=== PATIENT | male | born 1980 | race Caucasian/White ===

== ENCOUNTER 2016-10-18 20:56 | Emergency (ER) | payer SELFPAY ==
[~2016-10-18] VITALS: Ht 195.6 cm; Wt 108.9 kg
[~2016-10-18 20:56] MED LIST: AMOXICILLIN 50500 MG PO; AMOXIL500 MG PO; CEFZIL250 MG PO; CLARITIN10 MG PO; DARVOCET-N 1001 EACH PO; IBUPROFEN200 MG PO; KEFLEX 500MG.500 MG PO; LORTAB 5/500 501 TAB PO; MOTRIN800 MG PO; NAPROSYN 500MG500 MG PO; NOMEDS; PENICILLIN VK500 M1 PO; SULFAMETHOXAZOL1 TA6 PO; TORADOL10 M1 PO
--- OUTSIDE RECORDS SUMMARY | 2016-10-18 21:34 | External Medical Summary Rpt ---
Author Author , Organization [employer] Address Unknown Phone Unavailable Purpose Continuity of Care Document - through 2016
--- OUTSIDE RECORDS SUMMARY | 2016-10-18 21:34 | External Medical Summary Rpt ---
Author Author , Organization [employer] Address Unknown Phone Unavailable Care Team Providers Care Director Of Automation Name Role Phone Steven Palomo MD, Unavailable Unavailable Steven Palomo MD Purpose Continuity of Care Document - 08-06-2012 through 2016 Problems Code Diagnosis DOS Provider Status 522.5 522.5 08-06-2012 [facility] Allergies, Adverse Reactions, Alerts Type Allergy to substance Adverse Reaction to Substance Substance Reaction Severity NO KNOWN ALLERGIES Unknown Unknown Medications Na ND Rx Da Fi Fi Am Da Di Ph RX Ph St me C No te ll ll ou ys ag ar # ys at rm s nt no ma ic us Or Da si cy ia de te s n re d KE 00 04 0 No TO 40 -0 RO 93 7- Lo LA 79 20 ng C 60 13 er 60 1 Ac MG ti /2 ve ML AL LI 00 04 0 No DO 05 -0 CA 48 7- Lo IN 50 20 ng E 01 13 er 2% 6 Ac ti SC ve OU S 15 ML UD C Vital Signs 08-06-2012 08:33 Name Value Interpretat Reference Comment ion Range BP 79 mm[Hg] Diastolic BP Systolic 140 mm[Hg] Heart 87 /min Rate/Pulse O2% 96 % Respiratory 20 /min Rate 08-06-2012 08:32 Name Value Interpretat Reference Comment ion Range BP 79 mm[Hg] Diastolic BP Systolic 140 mm[Hg] Heart 87 /min Rate/Pulse O2% 96 % Respiratory 20 /min Rate Encounters Encounter Start End Date Code Location Performer Type Date Emergency SULEMAN Palomo (ER) 3 07:30 3 08:33 [facility] Steven
--- OUTSIDE RECORDS SUMMARY | 2016-10-18 21:34 | External Medical Summary Rpt ---
Demographics Preferred Language Japanese Marital Status Unknown Anglican Affiliation Unknown Race Unknown Ethnic Group Unknown Author Author , Organization [employer] Address Unknown Phone Unavailable Purpose Continuity of Care Document - 04-14-1999 through 2016 Immunization Name Date Route CVX Reacti Commen Provid Is Given on t er Refuse d Hep B, Histor H220 No 1999 ical ped/ad Inform ol ation - Source Unspec ified Hep B, Histor H220 No adol 1998 ical High Inform Ris ation - Source Unspec ified
--- OUTSIDE RECORDS SUMMARY | 2016-10-18 21:34 | External Medical Summary Rpt ---
Author Author , Organization [employer] Address Unknown Phone Unavailable Care Team Providers Care Sales And Marketing Specialist Name Role Phone Steven Palomo MD, Unavailable Unavailable Steven Palomo MD Purpose Continuity of Care Document - 08-06-2012 through 2016 Problems Code Diagnosis DOS Provider Status 522.5 522.5 08-06-2012 [facility] Allergies, Adverse Reactions, Alerts Type Allergy to [...] SULEMAN Palomo (ER) 3 07:30 3 08:33 [facility] Steven
--- OUTSIDE RECORDS SUMMARY | 2016-10-18 21:34 | External Medical Summary Rpt ---
Demographics Preferred Language Sinhala Marital Status Unknown Evangelical Affiliation Unknown Race Unknown Ethnic Group Unknown [...]
--- NOTE | 2016-10-18 22:38 | Emergency Room Report ---
History of Present Illness Time Seen by 2130 Presenting Problem in Triage Pt arrived:Walked Presenting Problem:c/o dog bite to right lower leg. 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 N Clinical Suspician of Infection? N Mental Status: 1 - Regular (Normal Baseline) Sepsis Risk:Possible Sepsis Risk Have you (or family members/close friends) recently traveled outside the [place]? N If Yes, where/when: Have you had exposure to infectious disease within the past month? N TB? Other? Specify: Source patient, RN notes reviewed, family, old records Exam Limitations no limitations Comment dog bite rt lower leg - thia pm and known animal - Cardiac Chest Pain Chest pain indicative of cardiac No Timing/Duration this evening Severity moderate ALLERGIES Coded Allergies: NO KNOWN ALLERGIES (10/18/16) Home Medications Reported Medications No Home Medications (NO HOME MEDICATIONS) History Medical History General CAD? No Angina: No CA: No Hypertension? No Hyperlipidemia? No CHF? No DVT? No PE? No COPD? No Asthma? No Anemia? No GERD? No Gastric ulcers? No GI Bleed? No Hernia? No Thyroid Problems? No Hypothyroidism? No CVA? No Seizures? No Diabetes? No Renal Insuffiency? No End Stage Renal Disease? No UTI? No Stones? No BPH? No GB Disease: No Nephritic Syndrome? No Asplenia? No Hepatitis? No Sickle Cell Disease? No Arthritis? No Migraines? No Cataracts? No Glaucoma? No MRSA? Yes HIV? No TB? No Anxiety? No Depression? No Cancer? No Immunization Hx DT/Tetanus 1-4 YRS Surgical Hx Previous Surgery?N Social History Smoking Hx Smoker: Current Every Day Smoker Tobacco: Yes Type Cigarettes Packs/day < 1 Pack Alcohol Alcohol: No Drugs none Review of Systems All Other Systems Reviewed and Negative Constitutional denies fever Eyes denies drainage ENT mouth pain. denies: ear pain, epistaxis, throat pain. Respiratory denies cough, denies shortness of breath, denies wheezing Cardiovascular denies chest pain, denies syncope Gastrointestinal denies abdominal pain, denies diarrhea, denies vomiting Genitourinary denies: dysuria, frequency, hesitancy, hematuria. Musculoskeletal denies back pain, denies joint pain, denies neck pain Skin denies rash Psychiatric/Neurological denies headache Physical Exam Vital Signs Vital Signs Date Time Temp Pulse Resp B/P Pulse O2 O2 Flow FiO2 Ox Delivery Rate 10/18 2104 98.4 99 20 142/81 98 - WBC >12,000 or <4,000 or 10% bands? 2 or more SIRS Criteria Met? B/P:142/81 MAP:101 Creatinine >2.0? UA output<0.5ml/kg/hr for 2 hrs? Platelet count >100,000? Lactate >2.0mmol/1? INR >1.2 or PTT > than 60 sec? Evidence of Organ Dysfunction? Provider documented clinical suspician of infection? N Sepsis Criteria Count: 2 Sepsis Risk: Possible Sepsis Risk General Appearance no apparent distress Eye Exam - bilateral eye PERRL, bilateral eye EOMI Ear, Nose, Throat normal ENT inspection Neck supple Respiratory Status No: respiratory distress. 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 No Results/Orders Current Medication Orders Sig/Juan Start time Last Medication Dose Route Stop Time Status Admin Lidocaine HCl 0 .STK-MED ONE 10/18 2236 DC .ROUTE Procedures Laceration/Wound Repair Laceration/Wound Repair Risks/benefits discussed with pt/guardian? Yes Tetanus status up to date Wound Location lower leg Wound Length (cm) 2 Wound's Depth, Shape sucutaneous tissue Wound Explored no FB identified Risk of retained FB explained to pt/guardian? Yes Irrigated w/ Saline (ccs) 0 Wound Prep Hibiclens, Saline Anesthesia 1% Lidocaine, Local Volume Anesthetic (ccs) 4 Wound Debrided none Wound Repaired With sutures Suture Size/Type 4:0, 3:0, Ethilon Layer Closure No Total Number Sutures 8 Sterile Dressing Applied Yes Splint Applied No Sling Applied No Departure Departure Time of Disposition 2236 Disposition DC Home or Self Care(routine) Clinical Impression Primary Impression: Dog bite Qualifiers: Encounter type: initial encounter Qualified Code: W54.0XXA - Bitten by dog, initial encounter Secondary Impressions: Laceration Condition STABLE Patient Instructions DI for Laceration Repair Additional Instructions sutures out 10-12 days and recheck if any problems Discharge Counseling Counseled pt/family regarding diagnosis, medications/RX, follow up needs Prescriptions Current Visit Scripts Amoxicillin/Potassium Clav (Augmentin 875-125 Tablet) 1 EACH PO BID #20 TAB ED Critical Care Critical Care No at [id number]
--- NOTE | 2016-10-18 22:38 | Emergency Room Report ---
History of Present Illness Time Seen by 2130 Presenting Problem in Triage Pt arrived:Walked Presenting Problem:c/o dog bite to right lower leg. 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 N Clinical Suspician of Infection? N Mental Status: 1 - Regular (Normal Baseline) Sepsis Risk:Possible Sepsis Risk Have you (or family members/close friends) recently traveled outside the [place]? N If Yes, where/when: Have you had exposure to infectious disease within the past month? N TB? Other? Specify: Source patient, RN notes reviewed, family, old records Exam Limitations no limitations Comment dog bite rt lower leg - thia pm and known animal - Cardiac Chest Pain Chest pain indicative of cardiac No Timing/Duration this evening Severity moderate ALLERGIES Coded Allergies: NO KNOWN ALLERGIES (10/18/16) Home Medications Reported Medications No Home Medications (NO HOME MEDICATIONS) History Medical History General CAD? No Angina: No LA: No Hypertension? No Hyperlipidemia? No CHF? No DVT? No PE? No COPD? No Asthma? No Anemia? No GERD? No Gastric ulcers? No GI Bleed? No Hernia? No Thyroid Problems? No Hypothyroidism? No CVA? No Seizures? No Diabetes? No Renal Insuffiency? No End Stage Renal Disease? No UTI? No Stones? No BPH? No GB Disease: No Nephritic Syndrome? No Asplenia? No Hepatitis? No Sickle Cell Disease? No Arthritis? No Migraines? No Cataracts? No Glaucoma? No MRSA? Yes HIV? No TB? No Anxiety? No Depression? No Cancer? No Immunization Hx DT/Tetanus 1-4 YRS Surgical Hx Previous Surgery?N Social History Smoking Hx Smoker: Current Every Day Smoker Tobacco: Yes Type Cigarettes Packs/day < 1 Pack Alcohol Alcohol: No Drugs none Review of Systems All Other Systems Reviewed and Negative Constitutional denies fever Eyes denies drainage ENT mouth pain. denies: ear pain, epistaxis, throat pain. Respiratory denies cough, denies shortness of breath, denies wheezing Cardiovascular denies chest pain, denies syncope Gastrointestinal denies abdominal pain, denies diarrhea, denies vomiting Genitourinary denies: dysuria, frequency, hesitancy, hematuria. Musculoskeletal denies back pain, denies joint pain, denies neck pain Skin denies rash Psychiatric/Neurological denies headache Physical Exam Vital Signs Vital Signs Date Time Temp Pulse Resp B/P Pulse O2 O2 Flow FiO2 Ox Delivery Rate 10/18 2104 98.4 99 20 142/81 98 - WBC >12,000 or <4,000 or 10% bands? 2 or more SIRS Criteria Met? B/P:142/81 MAP:101 Creatinine >2.0? UA output<0.5ml/kg/hr for 2 hrs? Platelet count >100,000? Lactate >2.0mmol/1? INR >1.2 or PTT > than 60 sec? Evidence of Organ Dysfunction? Provider documented clinical suspician of infection? N Sepsis Criteria Count: 2 Sepsis Risk: Possible Sepsis Risk General Appearance no apparent distress Eye Exam - bilateral eye PERRL, bilateral eye EOMI Ear, Nose, Throat normal ENT inspection Neck supple Respiratory Status No: respiratory distress. 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 No Results/Orders Current Medication Orders Sig/Juan Start time Last Medication Dose Route Stop Time Status Admin Lidocaine HCl 0 .STK-MED ONE 10/18 2236 DC .ROUTE Procedures Laceration/Wound Repair Laceration/Wound Repair Risks/benefits discussed with pt/guardian? Yes Tetanus status up to date Wound Location lower leg Wound Length (cm) 2 Wound's Depth, Shape sucutaneous tissue Wound Explored no FB identified Risk of retained FB explained to pt/guardian? Yes Irrigated w/ Saline (ccs) 0 Wound Prep Hibiclens, Saline Anesthesia 1% Lidocaine, Local Volume Anesthetic (ccs) 4 Wound Debrided none Wound Repaired With sutures Suture Size/Type 4:0, 3:0, Ethilon Layer Closure No Total Number Sutures 8 Sterile Dressing Applied Yes Splint Applied No Sling Applied No Departure Departure Time of Disposition 2236 Disposition DC Home or Self Care(routine) Clinical Impression Primary Impression: Dog bite Qualifiers: Encounter type: initial encounter Qualified Code: W54.0XXA - Bitten by dog, initial encounter Secondary Impressions: Laceration Condition STABLE Patient Instructions DI for Laceration Repair Additional Instructions sutures out 10-12 days and recheck if any problems Discharge Counseling Counseled pt/family regarding diagnosis, medications/RX, follow up needs Prescriptions Current Visit Scripts Amoxicillin/Potassium Clav (Augmentin 875-125 Tablet) 1 EACH PO BID #20 TAB ED Critical Care Critical Care No at 1572
[2016-10-18] MEDS ORDERED: AUGMENTIN 875-1 EACH PO (22:59)
[2016-10-18 23:09] VITALS: BP 142/81
== END 2016-10-18 23:10 | disposition home or self-care (01) ==
LOC: ER 20:56
PROC: 0HQKXZZ Repair Right Lower Leg Skin, External Approach (ICD-10-PCS; principal; 2016-10-18)
DX: S81.811A Laceration without foreign body, right lower leg, initial encounter (principal); W54.0XXA Bitten by dog, initial encounter